=== PATIENT | female | born 2000 | race Caucasian/White ===

== ENCOUNTER 2023-06-29 01:13 | Emergency (ER) | payer OTHER ==
[~2023-06-29] VITALS: Ht 162.6 cm; Wt 54.9 kg
[2023-06-29] MEDS ORDERED: ADDE15CA3 PO (01:22)
[2023-06-29] MEDS: ONDANSETRON 4MG 2ML VIAL IV ONE (01:51)
[2023-06-29] MEDS: NS 1,000 ML IV ONE (01:51)
[2023-06-29 02:10] LABS: BASO % 0.2 % (0.0-1.0); EOS % 0.2 % (0.0-3.0); HEMATOCRIT 43.7 % (36.0-47.0); HEMOGLOBIN 15.2 g/dl (12.0-15.5); LYMPH % 7.4 % (24.0-44.0); MEAN CORPUSCULAR HEMOGLOBIN 31.2 pg (27.0-33.0); MEAN CORPUSCULAR HGB CONC 34.8 g/dl (32.0-36.5); MEAN CORPUSCULAR VOLUME 89.7 fl (80.0-96.0); MONO % 5.4 % (2.0-8.0); NEUTROPHILS # 9.6 10^3/uL (1.5-8.5); NEUTROPHILS % 86.6 % (36.0-66.0); PLATELET COUNT, AUTOMATED 219 10^3/uL (150-450); RED BLOOD COUNT 4.87 10^6/uL (4.00-5.40)
[2023-06-29 02:11] LABS: LYMPH # 0.8 10^3/uL (1.5-5.0); MONO # 0.6 10^3/uL (0.0-0.8)
[2023-06-29 02:31] LABS: ALBUMIN 4.3 G/DL (3.2-5.2); ALKALINE PHOSPHATASE 62 U/L (46-116); ALT/SGPT 59 U/L (7.0-40); AST/SGOT 47 U/L (<34); BILIRUBIN,DIRECT 0.3 MG/DL (<0.4); BLOOD UREA NITROGEN 13 MG/DL (9-23); CALCIUM LEVEL 9.5 MG/DL (8.5-10.1); CARBON DIOXIDE LEVEL 25 MMOL/L (20-31); CHLORIDE LEVEL 103 MMOL/L (98-107); CREATININE FOR GFR 0.63 MG/DL (0.55-1.30); GLOMERULAR FILTRATION RATE > 60.0 (>60); GLUCOSE, FASTING 102 MG/DL (60-100); LIPASE 32 U/L (12-53); POTASSIUM SERUM 4.4 MMOL/L (3.5-5.1); SODIUM LEVEL 137 MMOL/L (136-145); TOTAL PROTEIN 7.1 G/DL (5.7-8.2)
[2023-06-29 02:58] LABS: HCG, SERUM QUALITATIVE NEGATIVE (NEGATIVE)
[2023-06-29] MEDS ORDERED: ISOVUE-370 76% 100ML VIAL As Ordered ONE (03:04)
[2023-06-29] MEDS: KETOROLAC 30 MG/ML 1ML VIAL IV ONE (03:11)
[2023-06-29] MEDS ORDERED: ONDA4TAB6 PO (04:54)
[2023-06-29 05:00] VITALS: BP 110/63; TEMP 98.7; O2SAT 97
== END 2023-06-29 05:09 | disposition home or self-care (01) ==
LOC: M ED 01:13
DX: R19.7 Diarrhea, unspecified (principal); R11.2 Nausea with vomiting, unspecified; Z88.8 Allergy status to other drugs, medicaments and biological substances; Z79.899 Other long term (current) drug therapy
CPT/HCPCS: 74177; 80048; 80076; 83690; 84703; 85025; 86850; 86900; 86901; 96361; 96374; 96375; 99284; J1885; J2405; Q9967

== ENCOUNTER 2024-05-14 14:04 | Emergency (ER) | payer OTHER ==
[~2024-05-14] VITALS: Ht 160 cm; Wt 49.2 kg
[~2024-05-14 14:04] MED LIST: ADDE15CA3 PO; ONDA-282 PO
[2024-05-14 15:50] LABS: BASO % 0.2 % (0.0-1.0); EOS # 0.1 10^3/uL (0.0-0.5); EOS % 0.6 % (0.0-3.0); HEMATOCRIT 41.1 % (36.0-47.0); LYMPH # 1.3 10^3/uL (1.5-5.0); LYMPH % 13.3 % (24.0-44.0); MEAN CORPUSCULAR HEMOGLOBIN 30.4 pg (27.0-33.0); MEAN CORPUSCULAR HGB CONC 34.1 g/dl (32.0-36.5); MEAN CORPUSCULAR VOLUME 89.2 fl (80.0-96.0); MONO # 0.8 10^3/uL (0.0-0.8); MONO % 8.5 % (2.0-8.0); NEUTROPHILS # 7.7 10^3/uL (1.5-8.5); NEUTROPHILS % 77.1 % (36.0-66.0); PLATELET COUNT, AUTOMATED 204 10^3/uL (150-450); RED BLOOD COUNT 4.61 10^6/uL (4.00-5.40); WHITE BLOOD COUNT 9.9 10^3/uL (4.0-10.0)
[2024-05-14 15:58] LABS: KETONE, URINE AUTO RFX NEGATIVE (NEGATIVE); LEUKOCYTE ESTERASE UR AUTO RFX NEGATIVE (NEGATIVE); MUCUS, URINE RFX SMALL (NEGATIVE); NITRITE, URINE AUTO RFX NEGATIVE (NEGATIVE); RBC, URINE AUTO RFX 1 /HPF (0-3); SQUAM EPITHELIAL CELL UR AURFX 3 /HPF (0-6); WBC, URINE AUTO RFX 0 /HPF (0-3)
[2024-05-14 16:14] LABS: ALBUMIN 3.7 G/DL (3.2-5.2); BILIRUBIN,DIRECT 0.1 MG/DL (<0.4); BILIRUBIN,TOTAL 0.3 MG/DL (0.3-1.2); TOTAL PROTEIN 6.7 G/DL (5.7-8.2)
[2024-05-14] MEDS ORDERED: ISOVUE-370 76% 100ML VIAL As Ordered ONE (17:49)
[2024-05-14] MEDS: KETOROLAC 30 MG/ML 1ML VIAL IV ONE (18:04)
[2024-05-14] MEDS: NS (Normal Saline) 0.9% 1,000 ML IV ONE (18:04)
[2024-05-14] MEDS ORDERED: ONDA-282 PO (18:46)
[2024-05-14 18:48] VITALS: BP 119/68; TEMP 97.5; O2SAT 100
== END 2024-05-14 19:03 | disposition home or self-care (01) ==
LOC: M ED 14:04
DX: R11.2 Nausea with vomiting, unspecified (principal); R19.7 Diarrhea, unspecified; K62.5 Hemorrhage of anus and rectum; K92.2 Gastrointestinal hemorrhage, unspecified; F90.9 Attention-deficit hyperactivity disorder, unspecified type; Z88.8 Allergy status to other drugs, medicaments and biological substances; Z79.899 Other long term (current) drug therapy
CPT/HCPCS: 74177; 80047; 80076; 81001; 84702; 85025; 96361; 96374; 99284; J1885; Q9967